=== PATIENT | male | born 1960 | race Caucasian/White ===

== ENCOUNTER 2021-12-13 10:44 | Day surgery (SDC) | payer OTHER ==
[~2021-12-13] VITALS: Ht 172 cm; Wt 115.3 kg
[2021-12-13] VITALS (7 sets, daily range): BP systolic 117–138; BP diastolic 78–98
[~2021-12-13 10:44] MED LIST: ADV1DS; ATN25T; FRSM20T; GNT.3OO351 OD; KCL10CCR; NAPR-243 PO; PHEN200T27 PO; SULF1TAB38 PO
--- NOTE | 2021-12-13 11:26 | ED Chest Pain ---
General Chief Complaint: Chest Pain Stated Complaint: CHEST PAINS Nursing Triage Note: PT TO RM 3 FROM [facility] WITH CC OF CHEST PAIN, STATES HE TOOK 1000 MG IBUPROFEN AND 3 ALEVE REMOTE MEDICAL CODER, PAIN STARTED ABOUT 0900, PT ATE 3 HAM AND CHEESE SANDWICHES BEFORE THAT THEN HIS HEART STARTED RACING, NOT THE FIRST TIME THIS HAS HAPPENED, ONCE ABOUT A WEEK AGO AFTER DOING YARD WORK, HAS NOT SEEN A DR FOR THIS BEFORE TODAY, FATHER AND BROTHER OF AMI'S. 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 States that he took 2000mg of Ibuprofen and 3 Aleve prior to arrival. Reports that his pain is a little better at this time. Did eat three cheese sandwiches prior to coming in also. Has never been seen for chest pain before. Reports that he had similar symptoms about a week ago after doing some yard work. Father and brother both of [place]. Timing/Duration: 1-3 hours Severity/Quality: moderate Location: substernal Radiation: no radiation Prior CP/Workup: no prior cardiac workup Modifying Factors: worse with exercise Associated Symptoms: No abdominal pain, No nausea/vomiting Allergies and Home Medications Allergies Coded Allergies: No Known Drug Allergies (Unverified , 04/30/06) Patient Home Medication List Home Medication List Reviewed: Yes Ibuprofen (Ibuprofen) 200 Mg Capsule, 200 MG PO PRN Prescribed by: PEDRO WADE on 12/13/21 [id number] Last Action: Reviewed Discontinued Medications Naproxen (Naprosyn) 500 Mg Tablet, 1 EACH PO BID Discontinued Reason: No Longer Taking Prescribed by: VELIA PAK on 03/23/09 1237 Last Action: Discontinued Phenazopyridine Hcl (Pyridium) 200 Mg Tablet, 1 EACH PO TID PRN Discontinued Reason: No Longer Taking Prescribed by: ALESHA VARGAS on 11/27/09 1301 Last Action: Discontinued Trimethoprim/Sulfamethoxazole (Bactrim Ds) 1 Ea Tablet, 1 EA PO BID Discontinued Reason: No Longer Taking Prescribed by: ALESHA VARGAS on 11/27/09 1301 Last Action: Discontinued Review of Systems Review of Systems Constitutional: No chills, No dizziness, No fever Respiratory: Denies Cough Cardiovascular: Chest Pain; Denies Edema, Denies Irregular Heart Rate, Denies Lightheadedness, Denies Palpitations, Denies Syncope Gastrointestinal: Denies Abdominal Pain, Denies Nausea, Denies Vomiting Genitourinary: Denies Burning, Denies Frequency Musculoskeletal: No back pain Skin: no symptoms reported All Other Systems Reviewed Negative Unless Noted: Yes Past Zbvevxc-Jygpyl-Ectjth Hx Patient Social History Tobacco Use?: No Substance use?: No Alcohol Use?: No Immunizations Up To Date Third COVID19 Vaccination Date: YES 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 oz. kg; 36.00 BMI Method:Stated General Appearance: No Apparent Distress Neck: Full Range of Motion, Normal Inspection, Non Tender, Supple Respiratory: Chest Non Tender, Lungs Clear, Normal Breath Sounds Cardiovascular: Regular Rate, Rhythm Gastrointestinal: Normal Bowel Sounds, No Organomegaly, No Pulsatile Mass, Non Tender, Soft Neurologic/Psychiatric: Alert, Oriented x3 Skin: Normal Color, Warm/Dry Progress/Results/Core Measures Results/Orders Lab Results Laboratory Tests Test 12/13/21 10:54 12/13/21 13:00 Range/Units White Blood Count 6.3 4.3-11.0 10^3/uL Red Blood Count 5.17 4.30-5.52 10^6/uL Hemoglobin 14.4 13.3-17.7 g/dL Hematocrit 45 40-54 % Mean Corpuscular Volume 87 80-99 fL Mean Corpuscular Hemoglobin 28 25-34 pg Mean Corpuscular Hemoglobin Concent 32 32-36 g/dL Red Cell Distribution Width 13.1 10.0-14.5 % Platelet Count 289 130-400 10^3/uL Mean Platelet Volume 8.8 L 9.0-12.2 fL Immature Granulocyte % (Auto) 1 % Neutrophils (%) (Auto) 69 42-75 % Lymphocytes (%) (Auto) 20 12-44 % Monocytes (%) (Auto) 9 0-12 % Eosinophils (%) (Auto) 1 0-10 % Basophils (%) (Auto) 1 0-10 % Neutrophils # (Auto) 4.4 1.8-7.8 10^3/uL Lymphocytes # (Auto) 1.2 1.0-4.0 10^3/uL Monocytes # (Auto) 0.5 0.0-1.0 10^3/uL Eosinophils # (Auto) 0.1 0.0-0.3 10^3/uL Basophils # (Auto) 0.1 0.0-0.1 10^3/uL Immature Granulocyte # (Auto) 0.1 0.0-0.1 10^3/uL Prothrombin Time 13.5 12.2-14.7 SEC INR Comment 1.0 0.8-1.4 Activated Partial Thromboplast Time 33 24-35 SEC D-Dimer 0.66 H 0.00-0.49 UG/ML Sodium Level 140 135-145 MMOL/L Potassium Level 4.4 3.6-5.0 MMOL/L Chloride Level 104 98-107 MMOL/L Carbon Dioxide Level 26 21-32 MMOL/L Anion Gap 10 5-14 MMOL/L Blood Urea Nitrogen 20 H 7-18 MG/DL Creatinine 1.33 H 0.60-1.30 MG/DL Estimat Glomerular Filtration Rate 60 BUN/Creatinine Ratio 15 Glucose Level 203 H 70-105 MG/DL Calcium Level 9.0 8.5-10.1 MG/DL Corrected Calcium 8.9 8.5-10.1 MG/DL Magnesium Level 2.1 1.6-2.4 MG/DL Total Bilirubin 0.4 0.1-1.0 MG/DL Aspartate Amino Transf (AST/SGOT) 21 5-34 U/L Alanine Aminotransferase (ALT/SGPT) 21 0-55 U/L Alkaline Phosphatase 85 40-136 U/L Myoglobin 264.2 H 10.0-92.0 NG/ML Troponin I 0.066 H 0.837 *H <0.028 NG/ML B-Type Natriuretic Peptide 25.5 <100.0 PG/ML Total Protein 7.6 6.4-8.2 GM/DL Albumin 4.1 3.2-4.5 GM/DL Lipase 29 8-78 U/L My Orders Orders - MILLI PAYNE E [employer] [place] Cbc With Automated Diff (12/13/21 11:30) Magnesium (12/13/21 11:30) Chest 1 View, Ap/Pa Only (12/13/21 11:30) Comprehensive Metabolic Panel (12/13/21 11:30) Myoglobin Serum (12/13/21 11:30) Protime With Inr (12/13/21 11:30) Partial Thromboplastin Time (12/13/21 11:30) O2 (12/13/21 11:30) Monitor-Rhythm Ecg Trace Only (12/13/21 11:30) Lipid Panel (12/14/21 06:00) Ed Iv/Invasive Line Start (12/13/21 11:30) Lipase (12/13/21 11:30) Bnp Ger (12/13/21 11:30) Fibrin Degradation Products (12/13/21 11:30) Troponin I Ger (12/13/21 11:30) Aspirin Chewable Tablet (Baby Aspirin Ch (12/13/21 11:30) Ct Angio Chest W (12/13/21 12:17) Ns Iv 1000 Ml (Sodium Chloride 0.9%) (12/13/21 12:30) Iohexol Injection (Omnipaque 350 Mg/Ml 1 (12/13/21 12:30) Received Contrast (Hold Metformin- Contr (12/13/21 12:30) Ns (Ivpb) (Sodium Chloride 0.9% Ivpb Bag (12/13/21 12:30) Sodium Chloride Flush (Catheter Flush Sy (12/13/21 12:30) Troponin I Ger (12/13/21 12:37) Nitroglycerin Ointment (Nitrobid Ointme (12/13/21 12:45) Enoxaparin Injection (Lovenox Injection) (12/13/21 13:45) Ns Iv 1000 Ml (Sodium Chloride 0.9%) (12/13/21 14:45) Medications Given in ED Current Medications Medications Dose Ordered Sig/William Route Start Time Stop Time Status Last Admin Dose Admin Aspirin 324 mg ONCE ONCE PO 12/13/21 11:30 12/13/21 11:32 DC 12/13/21 11:35 324 MG Iohexol 100 ml ONCE ONCE IV 12/13/21 12:30 12/13/21 12:32 DC 12/13/21 12:53 84 ML Nitroglycerin 1 inch ONCE ONCE TOP 12/13/21 12:45 12/13/21 12:46 DC 12/13/21 12:50 1 INCH Sodium Chloride 10 ml NEEDED PRN IV 12/13/21 12:30 12/13/21 12:53 10 ML Sodium Chloride 100 ml ONCE ONCE IV 12/13/21 12:30 12/13/21 12:32 DC 12/13/21 12:53 80 ML Vital Signs/I&O 12/13/21 10:48 Temp 36.5 Pulse 75 Resp 20 B/P (MAP) 164/103 (123) Pulse Ox 97 O2 Delivery Room Air Blood Pressure Mean: 123 Progress Progress Note : Progress Note patient with elevated troponin on labs. Spoke to cardiology and [facility] and patient will be admitted. Cardiology came to the department and took patient directly to the geophysical laboratory chief. Initial ECG Impression Date: Dec 13, 2021 Initial ECG Impression Time: 10:52 Initial ECG Rate: 89 Initial ECG Rhythm: A Fib/Flutter Initial ECG Impression: Atrial Fibrillation Departure Communication (Admissions) Time/Spoke to Admitting Phy: 13:24 Valery Time/Spoke to Consulting Phy: 12:53 Ceci Impression Primary Impression: NSTEMI (non-ST elevated myocardial infarction) Disposition: ADMITTED INPATIENT Condition: Stable Admissions Decision to Admit Reason: Admit from ER (General) Decision to Admit/Date: Dec 13, 2021 Time/Decision to Admit Time: 13:24 Departure-Patient Inst. Decision time for Depature: 13:24 Referrals: [facility]/K (PCP/Family) Primary Care Physician Scripts Ibuprofen (Ibuprofen) 200 Mg Capsule 200 MG PO PRN for 30 Days, CAP Prov: DAYAMI CHAHAL MD 12/13/21 MILLI PAYNE APRN Dec 13, 2021 11:26
[2021-12-13] MEDS ORDERED: ASPIRIN 81 MG CHEW (CHILDREN'S ASA) PO ONE (11:30)
[2021-12-13 11:38] LABS: BASOPHILS # (AUTO) 0.1 10^3/uL (0.0-0.1); BASOPHILS % (AUTO) 1 % (0-10); EOSINOPHILS # (AUTO) 0.1 10^3/uL (0.0-0.3); EOSINOPHILS % (AUTO) 1 % (0-10); HEMATOCRIT 45 % (40-54); HEMOGLOBIN 14.4 g/dL (13.3-17.7); LYMPHOCYTES # (AUTO) 1.2 10^3/uL (1.0-4.0); LYMPHOCYTES % (AUTO) 20 % (12-44); MEAN CORPUSCULAR HEMOGLOBIN 28 pg (25-34); MEAN CORPUSCULAR HGB CONC 32 g/dL (32-36); MEAN CORPUSCULAR VOLUME 87 fL (80-99); MEAN PLATELET VOLUME 8.8 fL (9.0-12.2); MONOCYTES # (AUTO) 0.5 10^3/uL (0.0-1.0); MONOCYTES % (AUTO) 9 % (0-12); NEUTROPHILS # (AUTO) 4.4 10^3/uL (1.8-7.8); NEUTROPHILS % (AUTO) 69 % (42-75); PLATELET COUNT 289 10^3/uL (130-400); WHITE BLOOD COUNT 6.3 10^3/uL (4.3-11.0)
[2021-12-13 11:44] LABS: PROTHROMBIN TIME PATIENT 13.5 SEC (12.2-14.7)
[2021-12-13 11:45] LABS: ALBUMIN 4.1 GM/DL (3.2-4.5); POTASSIUM 4.4 MMOL/L (3.6-5.0)
[2021-12-13 11:47] LABS: TOTAL PROTEIN 7.6 GM/DL (6.4-8.2)
[2021-12-13 11:49] LABS: BILIRUBIN,TOTAL 0.4 MG/DL (0.1-1.0)
[2021-12-13 11:51] LABS: CREATININE SERUM 1.33 MG/DL (0.60-1.30)
[2021-12-13 11:54] LABS: MAGNESIUM 2.1 MG/DL (1.6-2.4)
--- NOTE | 2021-12-13 12:05 | Diagnostic Imaging Report ---
CLINICAL INDICATION: Patient with chest pain. EXAM: Portable chest x-ray upright view. COMPARISON: None. FINDINGS: Lungs/pleura: Lungs are clear. There is no pneumothorax. There is no pleural effusion. Mediastinum: Unremarkable. Pulmonary vasculature: Unremarkable. Heart: Cardiac silhouette is upper limits of normal for portable projection. Bones/extrathoracic soft tissue: There are hypertrophic spurs involving the thoracic spine. IMPRESSION: There is no radiographic evidence of acute cardiopulmonary process. Dictated by: Dictated on workstation # [id number]
[2021-12-13] MEDS ORDERED: HOLD METFORMIN - RECEIVED CONTRAST 20 ML VIAL IV SCH (12:30)
[2021-12-13] MEDS ORDERED: NS IV 1000 ML 1,000 ML IV SCH ×2 (12:30→14:45)
[2021-12-13] MEDS ORDERED: NS 100 ML (IVPB) BAG IV ONE (12:30)
[2021-12-13] MEDS ORDERED: IOHEXOL 350 MG/ML 100 ML (OMNIPAQUE 350) VIAL IV ONE (12:30)
[2021-12-13] MEDS ORDERED: CATHETER FLUSH 10 ML SYR IV PRN (12:30)
[2021-12-13] MEDS ORDERED: NITROGLYCERIN 2% OINT 1 GM UNIT DOSE PACKET TOP ONE (12:45)
--- NOTE | 2021-12-13 13:06 | Diagnostic Imaging Report ---
PROCEDURE: CT angiography of the chest with contrast. TECHNIQUE: Multiple contiguous axial images were obtained through the chest after uneventful bolus administration of intravenous contrast. 3D reconstructed CTA MIP acquisitions were also performed. Auto Exposure Controls were utilized during the CT exam to meet ALARA standards for radiation dose reduction. INDICATION: Chest pain and elevated d-dimer. FINDINGS: There is good opacification of pulmonary arteries without intraluminal filling defect. Thoracic aorta is of normal caliber. There is extensive atherosclerotic calcification within coronary arteries. Focal groundglass density in the right upper lobe may represent minimal edema or pneumonitis. There is no consolidation or suspicious mass lesion. No significant pleural or pericardial fluid is identified and there is no evidence of pathologically enlarged adenopathy. IMPRESSION: No CTA evidence of pulmonary embolism or other great vessel abnormality in the thorax. There is coronary artery disease and minimal right upper lobe edema or pneumonitis. Dictated by: Dictated on workstation # [id number]
[2021-12-13] MEDS ORDERED: ENOXAPARIN 60 MG/0.6 ML (LOVENOX) SYR SC SCH (13:45)
[2021-12-13] MEDS ORDERED: NS IV 1000 ML 1,000 ML ONE (14:30)
[2021-12-13] MEDS ORDERED: LIDOCAINE 1% INJ 30 ML (XYLOCAINE) VIAL ONE (14:30)
[2021-12-13] MEDS ORDERED: HEParin (CATH LAB) 2,000 ML IV ONE (14:31)
[2021-12-13] MEDS ORDERED: fentaNYL INJ 100 MCG/2 ML AMP ONE ×2 (14:37→16:11)
[2021-12-13] MEDS ORDERED: VERAPAMIL 5 MG/2 ML (CALAN) VIAL IV ONE (14:37)
--- NOTE | 2021-12-13 14:37 | Consultation-Cardiology ---
HPI-Cardiology Cardiology Consultation Date of Consultation 12/13/21 Date of Admission Time Seen by Provider: 14:35 Indication: Chest pain HPI 61-year-old gentleman with history of hypertension, hyperlipidemia, has been having chest pain on and off for the past week. Became worse today. Came into the emergency room and he was having active pain. EKG did not show any acute changes, had a strong family history of heart disease. Noted to have elevation in troponin level. Home Medications & Allergies Allergies: Coded Allergies: No Known Drug Allergies (Unverified , 04/30/06) Home Medication List Reviewed: Yes KUV-Ztjkul-Tczqal Hx Patient Social History Marital Status: Employed/Student: employed Have you traveled recently?: No Alcohol Use?: No Past Medical History Discussed below Family Medical History Significant Family History: CAD Under 55 Years Old, CAD Over 55 Years Old Review of Systems-General Review of Systems Constitutional: no symptoms reported, see HPI EENTM: see HPI, no symptoms reported Respiratory: no symptoms reported, see HPI, dyspnea on exertion Cardiovascular: see HPI, chest pain; No edema, No Hx of Intervention, No palpitations, No syncope, No vascular heart diseas, No other Gastrointestinal: no symptoms reported, see HPI Genitourinary: no symptoms reported, see HPI Musculoskeletal: no symptoms reported, see HPI Skin: no symptoms reported, see HPI Psychiatric/Neurological: No Symptoms Reported, See HPI Reviewed Test Results Reviewed Test Results Lab Laboratory Tests Test 12/13/21 10:54 12/13/21 13:00 Range/Units White Blood Count 6.3 4.3-11.0 10^3/uL Red Blood Count 5.17 4.30-5.52 10^6/uL Hemoglobin 14.4 13.3-17.7 g/dL Hematocrit 45 40-54 % Mean Corpuscular Volume 87 80-99 fL Mean Corpuscular Hemoglobin 28 25-34 pg Mean Corpuscular Hemoglobin Concent 32 32-36 g/dL Red Cell Distribution Width 13.1 10.0-14.5 % Platelet Count 289 130-400 10^3/uL Mean Platelet Volume 8.8 L 9.0-12.2 fL Immature Granulocyte % (Auto) 1 % Neutrophils (%) (Auto) 69 42-75 % Lymphocytes (%) (Auto) 20 12-44 % Monocytes (%) (Auto) 9 0-12 % Eosinophils (%) (Auto) 1 0-10 % Basophils (%) (Auto) 1 0-10 % Neutrophils # (Auto) 4.4 1.8-7.8 10^3/uL Lymphocytes # (Auto) 1.2 1.0-4.0 10^3/uL Monocytes # (Auto) 0.5 0.0-1.0 10^3/uL Eosinophils # (Auto) 0.1 0.0-0.3 10^3/uL Basophils # (Auto) 0.1 0.0-0.1 10^3/uL Immature Granulocyte # (Auto) 0.1 0.0-0.1 10^3/uL Prothrombin Time 13.5 12.2-14.7 SEC INR Comment 1.0 0.8-1.4 Activated Partial Thromboplast Time 33 24-35 SEC D-Dimer 0.66 H 0.00-0.49 UG/ML Sodium Level 140 135-145 MMOL/L Potassium Level 4.4 3.6-5.0 MMOL/L Chloride Level 104 98-107 MMOL/L Carbon Dioxide Level 26 21-32 MMOL/L Anion Gap 10 5-14 MMOL/L Blood Urea Nitrogen 20 H 7-18 MG/DL Creatinine 1.33 H 0.60-1.30 MG/DL Estimat Glomerular Filtration Rate 60 BUN/Creatinine Ratio 15 Glucose Level 203 H 70-105 MG/DL Calcium Level 9.0 8.5-10.1 MG/DL Corrected Calcium 8.9 8.5-10.1 MG/DL Magnesium Level 2.1 1.6-2.4 MG/DL Total Bilirubin 0.4 0.1-1.0 MG/DL Aspartate Amino Transf (AST/SGOT) 21 5-34 U/L Alanine Aminotransferase (ALT/SGPT) 21 0-55 U/L Alkaline Phosphatase 85 40-136 U/L Myoglobin 264.2 H 10.0-92.0 NG/ML Troponin I 0.066 H 0.837 *H <0.028 NG/ML B-Type Natriuretic Peptide 25.5 <100.0 PG/ML Total Protein 7.6 6.4-8.2 GM/DL Albumin 4.1 3.2-4.5 GM/DL Lipase 29 8-78 U/L Physical Exam Physical Exam Vital Signs Vital Signs - First Documented 12/13/21 10:48 Temp 36.5 Pulse 75 Resp 20 B/P (MAP) 164/103 (123) Pulse Ox 97 O2 Delivery Room Air Capillary Refill : Height, Weight, BMI Height: '" Weight: lbs. oz. kg; 36.00 BMI Method:Stated General Appearance: No Apparent Distress, WD/WN Eyes: Bilateral Eye Normal Inspection, Bilateral Eye PERRL, Bilateral Eye EOMI HEENT: PERRL/EOMI, TMs Normal, Normal ENT Inspection, Pharynx Normal, Moist Mucous Membranes Neck: Full Range of Motion, Normal Inspection, Non Tender, Supple, Carotid Bruit Respiratory: Chest Non Tender, Normal Breath Sounds, No Accessory Muscle Use, No Respiratory Distress Cardiovascular: Regular Rate, Rhythm, No Edema, No Gallop, No JVD, No Murmur, Normal Peripheral Pulses Gastrointestinal: Normal Bowel Sounds, No Organomegaly, No Pulsatile Mass, Non Tender, Soft Back: Normal Inspection, No CVA Tenderness, No Vertebral Tenderness Extremity: Normal Capillary Refill, Normal Inspection, Normal Range of Motion, Non Tender, No Calf Tenderness, No Pedal Edema Neurologic/Psychiatric: Alert, Oriented x3, No Motor/Sensory Deficits, Normal Mood/Affect Skin: Normal Color, Warm/Dry Lymphatic: No Adenopathy A/P-Cardiology Admission Diagnosis Chest pain Non-ST elevation myocardial infarction Hypertension Hyperlipidemia Assessment/Plan Chest pain, unstable angina, non-ST elevation myocardial infarction, elevation in troponin level Plan to proceed with cardiac catheterization possible PTCA Coronary artery disease, had a cardiac catheterization 2007 showing mild to moderate coronary artery. Planning to proceed with cardiac catheter Hypertension, restart home medication monitor blood pressure Hyperlipidemia, monitor lipids Strong family history of heart disease. Clinical Quality Measures AMI/AHF: ASA po Prior to arrival: DAYAMI Neal MD Dec 13, 2021 14:37
[2021-12-13] MEDS ORDERED: HEParin 1000 UNIT/ML (10ML VIAL) FOR BOLUS ONE (14:38)
[2021-12-13] MEDS ORDERED: MIDAZOLAM 2 MG/2 ML (VERSED) VIAL ONE ×2 (14:38→16:11)
[2021-12-13] MEDS ORDERED: NITRO DRIP 25000 MCG/D5W 0 ML IV ONE (14:38)
--- NOTE | 2021-12-13 14:38 | Cardiac Procedure Note-CS/ASA ---
Pre-Procedure Note Pre-Op Procedure Note Date of Available H&P: Dec 13, 2021 Date H&P Reviewed: Dec 13, 2021 Time H&P Reviewed: 14:37 History & Physical: H&P Reviewed, Patient Examed, No changes noted Pre-Operative Diagnosis: NSTMI Conscious Sedation Pre-Proced Time 14:38 ASA Score 3 For ASA 3 and 4: Consider anesthesia and medical clearance. Also, for patients with a history of failed moderate sedation consider anesthesia. Airway Lungs Heart ASA score ASA 1: a normal healthy patient ASA 2: a patient with a mild systemic disease (mid diabetes, controlled hypertension, obesity ASA 3: a patient with a severe systemic disease that limits activity (angina, COPD, prior Myocardial infarction) ASA 4: a patient with an incapacitating disease that is a constant threat to life (CHF, renal failure) ASA 5: a moribund patient not expected to survive 24 hrs. (ruptured aneurysm) ASA 6: a declared brain- patient whose organs are being harvested. For emergent operations, add the letter E after the classification Mallampati Classification Grade 3 Sedation Plan Analgesia, Amnesia, Plan communicated to team members, Discussed options with patient/fam, Discussed risks with patient/fam The patient is an appropriate candidate to undergo the planned procedure, sedation, and anesthesia. The patient immediately re-assessed prior to indication. DAYAMI CHAHAL MD Dec 13, 2021 14:38
--- NOTE | 2021-12-13 15:01 | History & Physical-Hospitalist ---
JOCELYN SEGOVIA 12/13/21 1501: History of Present Illness HPI/Chief Complaint Patient is a 61 yo man presenting with left-sided chest pain. He describes it as a constant ache that radiates to his left shoulder and down his arm. Notes that the pain has been intermittent for the last week or so but is much worse today, prompting him to seek care at the ER. The patient states that he had been doing some yard work a few days ago and at first thought that the discomfort in his chest and shoulder were the result of overwork. He notes similar occurrences in the past in which he had to have a cardiac cath but notes that last time, his symptoms were accompanied by more shortness of breath. He indicates SOB with exertion, intermittent swelling of his ankles, He denies nausea, vomiting, dizziness, lightheadedness, headaches, or syncope. He does not regularly see a doctor, takes no medications, and has a previous medical history of kidney cancer when he was 24 for which he received chemotherapy. Family history of myocardial infarction in his father ( at 52 from [place]) and brother (Had 6 previous bypass procedures before dying in his sleep). He does not smoke, drink alcohol, or use illicit drugs. Notes that he has seasonal allergies and experienced what he believes to be a cold a few weeks ago. believes that he has undiagnosed diabetes due to shakiness and agitation if he goes too long without eating. Source: patient, family, RN/MD, RN notes reviewed Exam Limitations: no limitations Date Seen 12/13/21 Time Seen by a Provider: 14:00 Attending Physician [facility] PCP Admitting Physician: Shira Arroyo DO Attending Physician: Shira Arroyo DO Referring Physician Date of Admission 12/13/2021 Home Medications & Allergies Home Medications Reviewed patient Home Medication Reconciliation performed by pharmacy medication reconciliations model technician and/or nursing. Patients Allergies have been reviewed. Allergies Allergies Coded Allergies No Known Drug Allergies (Unverified04/30/06) Past Tentrqn-Hkhiuz-Jcrmeq Hx Patient Social History Marrital Status: Employed/Student: employed Tobacco Use?: No Substance use?: No Alcohol Use?: No Seasonal Allergies Seasonal Allergies: Yes Current Status Primary Language: Frisian Preferred Spoken Language: Frisian Sensory deficits: Hearing impairment Implanted or Applied Medical D: None Past Medical History Hearing Impairment: Hard of Hearing Kidney Did You Recieve Any Treatments: Yes What Type of Treatment Did You: Chemotherapy, Surgical Intervention Patient states that he had kidney cancer when he was 24. Family Medical History Heart Disease, CAD Under 55 Years Old, CAD Over 55 Years Old Review of Systems Constitutional: see HPI; No chills, No dizziness, No fever EENTM: no symptoms reported Respiratory: see HPI, dyspnea on exertion Cardiovascular: see HPI, chest pain, edema (Minor swelling in legs); No syncope Gastrointestinal: no symptoms reported, see HPI; No abdominal pain, No nausea, No vomiting Genitourinary: no symptoms reported Musculoskeletal: no symptoms reported, see HPI Skin: no symptoms reported Psychiatric/Neurological: No Symptoms Reported Physical Exam Physical Exam Vital Signs Vital Signs - First Documented 12/13/21 10:48 Temp 36.5 Pulse 75 Resp 20 B/P (MAP) 164/103 (123) Pulse Ox 97 O2 Delivery Room Air Capillary Refill : Height, Weight, BMI Height: 172 cm Weight: 109 kg; 36.00 BMI Method:Stated General Appearance: No Apparent Distress, WD/WN, Obese HEENT: PERRL/EOMI Neck: Full Range of Motion, Normal Inspection, Non Tender, Supple; No JVD Respiratory: Chest Non Tender, Lungs Clear, Normal Breath Sounds, No Accessory Muscle Use, No Respiratory Distress Cardiovascular: Regular Rate, Rhythm, No Gallop, No JVD, No Murmur, Normal Peripheral Pulses Gastrointestinal: Normal Bowel Sounds, No Organomegaly, No Pulsatile Mass, Non Tender, Soft Rectal: Deferred Back: Normal Inspection, No Vertebral Tenderness Extremity: Normal Inspection, Normal Range of Motion, Non Tender, No Calf Tenderness, Swelling (Trace swelling in ankles bilaterally) Neurologic/Psychiatric: Alert, Oriented x3, No Motor/Sensory Deficits, Normal Mood/Affect Skin: Normal Color, Warm/Dry Results Results/Procedures Labs Laboratory Tests 12/13/21 10:54 Patient resulted labs reviewed. Imaging Date of Exam:12/13/21 CT ANGIO CHEST W PROCEDURE: CT angiography of the chest with contrast. TECHNIQUE: Multiple contiguous axial images were obtained through the chest after uneventful bolus administration of intravenous contrast. 3D reconstructed CTA MIP acquisitions were also performed. Auto Exposure Controls were utilized during the CT exam to meet ALARA standards for radiation dose reduction. INDICATION: Chest pain and elevated d-dimer. FINDINGS: There is good opacification of pulmonary arteries without intraluminal filling defect. Thoracic aorta is of normal caliber. There is extensive atherosclerotic calcification within coronary arteries. Focal groundglass density in the right upper lobe may represent minimal edema or pneumonitis. There is no consolidation or suspicious mass lesion. No significant pleural or pericardial fluid is identified and there is no evidence of pathologically enlarged adenopathy. IMPRESSION: No CTA evidence of pulmonary embolism or other great vessel abnormality in the thorax. There is coronary artery disease and minimal right upper lobe edema or pneumonitis. Dictated on workstation # [id number] Dict: 12/13/21 1301 Trans: 12/13/21 1306 [id number] Interpreted by: ADONIS LINDSEY MD Date of Exam:12/13/21 CHEST 1 VIEW, AP/PA ONLY CLINICAL INDICATION: Patient with chest pain. EXAM: Portable chest x-ray upright view. COMPARISON: None. FINDINGS: Lungs/pleura: Lungs are clear. There is no pneumothorax. There is no pleural effusion. Mediastinum: Unremarkable. Pulmonary vasculature: Unremarkable. Heart: Cardiac silhouette is upper limits of normal for portable projection. Bones/extrathoracic soft tissue: There are hypertrophic spurs involving the thoracic spine. IMPRESSION: There is no radiographic evidence of acute cardiopulmonary process. Dictated on workstation # [id number] Dict: 12/13/21 1202 Trans: 12/13/21 1205 [id number] Interpreted by: SVETLANA WING MD Both imaging reports are currently in draft stage Meds As stated in meds list. Enoxaparin for DVT prophylaxis. NaCl 1,000 @ 100 mls/hr. Nitroglycerin, aspirin administered in ER. Orders placed for heparin, midazolam, fentanyl citrate, verapamil, lidocaine placed Procedures Patient to undergo cardiac catheterization Assessment/Plan Admission Diagnosis Chest pain (NSTEMI) Admission Status: Inpatient Order (span 2 midnights) Reason for Inpatient Admission: Patient to be admitted for cardiac catheterization and medication management. Due to concerning symptoms for acute cardiac disease, inpatient care is advised. Assessment and Plan Chest pain, elevated troponin (NSTEMI) - patient to undergo cardiac catheterization. Hypertension - begin treatment with anti-hypertensive. Lisinopril is not contraindicated. Continue close monitoring of BP measurements. CAD - Patient had a cardiac catheterization in 2007 showing mild to moderate coronary artery. Hyperlipidemia - Monitor lipid levels Elevated D-dimer - enoxaparin initiated for DVT prophylaxis Family history of heart disease Hyperglycemia - further work-up for possible Type II Diabetes Mellitus needed Clinical Quality Measures AMI/AHF: ASA po Prior to arrival: No DVT/VTE Risk/Contraindication: VTE Addressed: Yes VTE Present on Admission: No SHIRA ARROYO 12/14/21 0513: History of Present Illness HPI/Chief Complaint Chief complaint: Chest pain with NSTEMI HPI: This is a 61-year-old male with a past medical history of hypertension who presents with chest pain. Elevated troponin noted. He underwent cardiac catheterization and showed no evidence of any need for intervention. Source: patient, family Exam Limitations: no limitations Past Hjpcked-Rvlkue-Kbjavk Hx Patient Social History Marrital Status: Employed/Student: retired Smoking Status: Former Smoker Past Medical History High Cholesterol, Hypertension Review of Systems Constitutional: see HPI Cardiovascular: chest pain Physical Exam Physical Exam General Appearance: No Apparent Distress, Chronically ill, Obese Eyes: Right Eye Normal Inspection, Right Eye PERRL HEENT: PERRL/EOMI, Normal ENT Inspection, Pharynx Normal, Moist Mucous Membranes Neck: Full Range of Motion, Normal Inspection, Non Tender Respiratory: Chest Non Tender, Lungs Clear, Normal Breath Sounds, No Accessory Muscle Use, No Respiratory Distress Cardiovascular: Regular Rate, Rhythm, No Edema, No Gallop, No JVD, No Murmur, Normal Peripheral Pulses Gastrointestinal: Normal Bowel Sounds, No Organomegaly, No Pulsatile Mass, Non Tender, Soft Back: Normal Inspection, No CVA Tenderness, No Vertebral Tenderness Extremity: Normal Capillary Refill, Normal Inspection, Normal Range of Motion, Non Tender, No Calf Tenderness, No Pedal Edema Neurologic/Psychiatric: Alert, Oriented x3, No Motor/Sensory Deficits, Normal Mood/Affect Skin: Normal Color, Warm/Dry Lymphatic: No Adenopathy Assessment/Plan Admission Diagnosis Chest pain NSTEMI Obesity Hypertension Plan: Cardiac cath Admission Status: Observation Supervisory-Addendum Brief Verification & Attestation Participated in pt care: history, MDM, physical Personally performed: exam, history, MDM, supervision of care Care discussed with: Medical Student Procedures: n/a Results interpretation: Verified all documentation Verification and Attestation of Medical Student E/M Service A medical student performed and documented this service in my presence. I reviewed and verified all information documented by the medical student and made modifications to such information, when appropriate. I personally performed the physical exam and medical decision making. Shira S Arroyo, Dec 14, 2021,05:12 JOCELYN SEGOVIA Dec 13, 2021 15:01 SHIRA ARROYO DO Dec 14, 2021 05:13
[2021-12-13] MEDS ORDERED: PATIENT MAY USE OWN MEDS, ALL PO SCH ×2 (16:30→17:00)
--- NOTE | 2021-12-13 16:35 | Cardiac Cath Report ---
Cardiac Cath Report Physician (s)/Molecular Spectroscopist (s) Physician DAYAMI CHAHAL MD Pre-Procedure Diagnosis Pre-Procedure Diagnosis: NSTMI Post-Procedure Note Procedure Start Date: Dec 13, 2021 Name of Procedure: Left heart catheterization IFR to the right coronary artery IFR to the LAD IFR to the circumflex Findings/Procedure Note PROCEDURE NOTE: Patient was admitted with acute non-ST elevation myocardial infarction. After explaining the procedure to the patient, all pros and cons were explained, all questions were answered. The patient signed the consent and then he was placed on the cardiac catheterization laboratory. Groin was prepped SL fashion local anesthesia was used. Sheath placed in the right femoral artery. Ronna right and left catheter were used to access the coronary system. Ronna right was prolapsed to the left ventricular cavity, pressure was measured, pullback LV to aorta was done. Patient was noted to have diffuse ectasia with multiple lesions in all his coronaries. Ronna right guide was advanced then IFR wire was advanced through the right coronary artery and the measurement was 0.97. I used multiple different guides then I was able to intubate the left main with EBU 3.5 guide. IFR wire was advanced to the LAD and the value was 0.97. Then retracted and advanced into the circumflex artery and IFR was 0.98 through the circumflex system. At the end of the procedure the sheath was removed. Closure device was deployed FINDINGS: Hemodynamics LV 118/22, end-diastolic pressure of 22 Aorta 120/84 mean of 83 ANATOMY: Left Main is free of obstructive disease Left Anterior Descending has significant ectasia with aneurysm in the mid LAD, IFR through the LAD was 0.97. The first diagonal artery has mid subtotal occlusion in its moderate to small in size. Fairly distal artery. Medical therapy is recommended Left Circumflex has diffuse ectasia with ostial stenosis, IFR through the circumflex artery was 0.98 Right Coronary Artery has diffuse ectasia with a lesion in the proximal and mid right coronary artery and IFR through the right coronary artery was 0.97 LV Gram was not done, pressure was measured CONCLUSION: 1. 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 Multiple moderate lesions nonobstructive disease in the coronary system with IFR through the LAD and right coronary artery and the circumflex artery around 0.97. 2. Subtotal occlusion at the mid to distal first diagonal artery which is small to moderate in size. Medical therapy is recommended 3. Mildly elevated left ventricular end-diastolic pressure DISCUSSION AND RECOMMENDATION: Maximizing medical therapy is recommended no intervention is warranted Anesthesia Type: Conscious Sedation Estimated blood loss (mL): 35 ml Contrast Amount: 105 ml Total Radiation Dose: 1411 mGy Post-Procedure Diagnosis Post-operative diagnosis: Non-ST elevation myocardial infarction Coronary artery disease Hypertension Hyperlipidemia DAYAMI CHAHAL MD Dec 13, 2021 16:35
[2021-12-13] MEDS ORDERED: NITROGLYCERIN 0.4 MG SL TABS BTL 25'S SL PRN ×2 (16:45→17:00)
[2021-12-13] MEDS ORDERED: MILK OF MAGNESIA 400 MG/5 ML 30 ML UDC PO PRN (17:00)
[2021-12-13] MEDS ORDERED: ANTACID SUSP 30 ML UDC (MYLANTA) PO PRN (17:00)
[2021-12-13] MEDS ORDERED: diphenhydrAMINE 25 MG TAB (BENADRYL) PO PRN (17:00)
[2021-12-13] MEDS ORDERED: MELATONIN 3 MG TABLET PO PRN (17:00)
[2021-12-13] MEDS ORDERED: diphenhydrAMINE 50 MG/ML INJ (BENADRYL) IVP PRN (17:00)
[2021-12-13] MEDS ORDERED: LORazepam 0.5 MG (ATIVAN) TABLET PO PRN (17:00)
[2021-12-13] MEDS ORDERED: BISACODYL 10 MG SUPP (DULCOLAX) PR PRN (17:00)
[2021-12-13] MEDS ORDERED: morphine IMMEDIATE RELEASE 15 MG TABLET PO PRN (17:00)
[2021-12-13] MEDS ORDERED: morphine INJ 4 MG/ML 1 ML (VIAL/SYRINGE) IV PRN (17:00)
[2021-12-13] MEDS ORDERED: ONDANSETRON 4 MG/2 ML (SDV) Z0FRAN IV PRN (17:00)
[2021-12-13] MEDS ORDERED: polyethylene glycoL POWDER 17 GM (MIRALAX) PACK PO PRN (17:00)
[2021-12-13] MEDS ORDERED: ONDANSETRON 4 MG (ZOFRAN) ORAL DISSOLVE TAB PO PRN (17:00)
[2021-12-13] MEDS ORDERED: CALCIUM CARBONATE 500 MG (TUMS) TAB.CHEW PO PRN (17:00)
[2021-12-13] MEDS ORDERED: LACTULOSE SYRUP 10GM/15ML (ENULOSE) 30ML UDC PO PRN (17:00)
[2021-12-13] MEDS ORDERED: cloNIDine 0.1 MG (CATAPRES) TAB PO PRN (17:00)
[2021-12-13] MEDS ORDERED: ENOXAPARIN 100 MG/1 ML (LOVENOX) SYR SC SCH (17:00)
[2021-12-13] MEDS ORDERED: ISOSORBIDE MONONITRATE 30 MG (IMDUR) TAB PO NR (17:45)
[2021-12-13] MEDS ORDERED: CLOPIDOGREL 300 MG (PLAVIX) TABLET PO NR (17:45)
[2021-12-13] MEDS: NS IV 1000 ML 1,000 ML IV SCH ×2 (17:54→21:12)
[2021-12-13] MEDS ORDERED: FLU QUADRIvalent (6 months+) 60 mcg/0.5 ml 2022-23 (Fluzone) IM ONE (18:00)
[2021-12-13] MEDS ORDERED: IBUP-2185 PO (18:53)
[2021-12-13] MEDS: meTOprolol TARTRATE 25 MG (LOPRESSOR) TABLET PO SCH (21:06)
[2021-12-13] MEDS: inSUlin ASPART (NovoLOG) 1 UNIT/0.01 ML (CHARGE PER UNIT) SC SCH (21:11)
[2021-12-13] MEDS: DOCUSATE SODIUM 100 MG (COLACE) CAP PO SCH (21:11)
[2021-12-13] MEDS: SENNOSIDES 8.6 MG (SENOKOT) TAB PO SCH (21:11)
[2021-12-14] VITALS: BP 116/72
[2021-12-14] MEDS: ACETAMINOPHEN 325 MG TABLET PO PRN (00:59)
[2021-12-14 04:00] VITALS: BP 106/67
[2021-12-14] MEDS: ENOXAPARIN 120 MG/0.8 ML (LOVENOX) SQ SCH ×2 (04:36→17:07)
[2021-12-14 06:16] LABS: BASOPHILS # (AUTO) 0.1 10^3/uL (0.0-0.1); BASOPHILS % (AUTO) 1 % (0-10); EOSINOPHILS # (AUTO) 0.1 10^3/uL (0.0-0.3); EOSINOPHILS % (AUTO) 1 % (0-10); HEMATOCRIT 38 % (40-54); HEMOGLOBIN 11.9 g/dL (13.3-17.7); LYMPHOCYTES # (AUTO) 1.3 10^3/uL (1.0-4.0); LYMPHOCYTES % (AUTO) 18 % (12-44); MEAN CORPUSCULAR HEMOGLOBIN 28 pg (25-34); MEAN CORPUSCULAR HGB CONC 31 g/dL (32-36); MEAN CORPUSCULAR VOLUME 89 fL (80-99); MEAN PLATELET VOLUME 8.8 fL (9.0-12.2); MONOCYTES # (AUTO) 0.6 10^3/uL (0.0-1.0); MONOCYTES % (AUTO) 9 % (0-12); NEUTROPHILS % (AUTO) 70 % (42-75); PLATELET COUNT 239 10^3/uL (130-400); WHITE BLOOD COUNT 7.2 10^3/uL (4.3-11.0)
[2021-12-14 06:29] LABS: ALBUMIN 3.2 GM/DL (3.2-4.5); POTASSIUM 4.5 MMOL/L (3.6-5.0)
[2021-12-14 06:30] LABS: CALCIUM 8.2 MG/DL (8.5-10.1)
[2021-12-14 06:34] LABS: BILIRUBIN,TOTAL 0.5 MG/DL (0.1-1.0)
[2021-12-14 06:35] LABS: CREATININE SERUM 1.03 MG/DL (0.60-1.30)
[2021-12-14] MEDS: inSUlin ASPART (NovoLOG) 1 UNIT/0.01 ML (CHARGE PER UNIT) SC SCH ×4 (06:38→21:19)
[2021-12-14 07:52] VITALS: BP 105/66
[2021-12-14] MEDS: DOCUSATE SODIUM 100 MG (COLACE) CAP PO SCH ×2 (09:21→21:19)
--- NOTE | 2021-12-14 09:22 | Cardiology Progress Note ---
Subjective Date Seen by Provider: Dec 14, 2021 Time Seen by Provider: 09:20 Subjective/Events-last exam Patient was seen at bedside, laying down comfortably, feeling better. Denied any chest pain. Review of Systems General: No Chills, No Night Sweats, No Fatigue, No Malaise, No Appetite, No Other HEENT: No Head Aches, No Visual Changes, No Eye Pain, No Ear Pain, No Dysphasia, No Sinus Congestion, No Post Nasal Drip, No Sore Throat, No Other Pulmonary: No Dyspnea, No Cough, No Pleuritic Chest Pain, No Other Cardiovascular: No: Chest Pain, Palpitations, Orthopnea, Paroxysmal Noc. Dyspnea, Edema, Lt Headedness, Other Objective-Cardiology Exam Last Set of Vital Signs Vital Signs 12/14/21 12/14/21 07:52 08:00 Temp 36.8 Pulse 84 Resp 20 B/P (MAP) 105/66 (79) Pulse Ox 96 O2 Delivery Room Air I&O Intake and Output 12/14/21 00:00 Intake Total 1200 ml Output Total 425 ml Balance 775 ml Intake Oral 200 ml IV Total 1000 ml Output Urine Total 425 ml Daily Weight Change No General: Alert, Oriented X3, Cooperative HEENT: Atraumatic, PERRLA Neck: Supple, No JVD, No Thyromegaly Lungs: Clear to Auscultation, Normal Air Movement Heart: Regular Rate, Normal S1, Normal S2, Other (Systolic murmur at the left sternal border) Abdomen: Normal Bowel Sounds, Soft, No Tenderness, No Hepatosplenomegaly, No Masses Extremities: No Clubbing, No Cyanosis, No Edema, Normal Pulses, No Tenderness/Swelling Skin: No Rashes, No Breakdown, No Significant Lesion Neuro: Normal Gait, Normal Speech, Strength at 5/5 X4 Ext, Normal Tone, Sensation Intact Psych/Mental Status: Mental Status NL, Mood NL Results Lab Laboratory Tests 12/13/21 10:54 12/14/21 05:25 A/P-Cardiology Admission Diagnosis FINAL DIAGNOSIS chest pain Non-ST elevation myocardial infarction Hypertension Hyperlipidemia Assessment/Plan HOSPITAL COURSE Chest pain, unstable angina, non-ST elevation myocardial infarction, elevation in troponin level Cardiac catheterization was done on December 13, 2021. Diffuse coronary ectasia was noted. Subtotal occlusion in the mid first diagonal artery that is smaller artery not amendable to intervention. Medical therapy is recommended. Patient was started on aspirin and Plavix. Planning for discharge today and follow-up as an outpatient Coronary artery disease, had a cardiac catheterization 2007 showing mild to moderate coronary artery. Cardiac catheterization carried out on December 13, 2021, diffuse coronary ectasia with multiple lesions about 50 to 60%. iFR was done in all 3 arteries, RCA 0.97, left circumflex artery 0.97 and LAD 0.98. Does not require any intervention or stenting. Subtotal occlusion in the mid diagonal artery, small to moderate in size, not amendable to intervention. Medical therapy is recommended Hypertension, better controlled, monitor blood pressure Hyperlipidemia, monitor lipids Strong family history of heart disease. Patient was educated on compliance with medications. Arrange for follow-up in 1 to 2 weeks DAYAMI CHAHAL MD Dec 14, 2021 09:22
[2021-12-14] MEDS: SENNOSIDES 8.6 MG (SENOKOT) TAB PO SCH ×2 (09:23→21:19)
[2021-12-14] MEDS: CLOPIDOGREL 75 MG (PLAVIX) TABLET PO SCH (09:24)
[2021-12-14] MEDS: ASPIRIN E.C. 81 MG (ECOTRIN) TAB PO SCH (09:24)
[2021-12-14] MEDS: LOSARTAN 25 MG (COZAAR) TAB PO SCH (09:24)
[2021-12-14] MEDS: meTOprolol TARTRATE 25 MG (LOPRESSOR) TABLET PO SCH ×2 (09:24→21:19)
[2021-12-14] MEDS: ISOSORBIDE MONONITRATE 30 MG (IMDUR) TAB PO SCH (09:24)
[2021-12-14] MEDS: PANTOPRAZOLE 40 MG (PROTONIX) TAB PO SCH (09:25)
[2021-12-14] MEDS ORDERED: ATOR80TA76 PO (09:25)
[2021-12-14] MEDS ORDERED: ASPI-1238 PO (09:25)
[2021-12-14] MEDS ORDERED: PANT40SU PO (09:25)
[2021-12-14] MEDS ORDERED: NITR0.4T42 SL (09:25)
[2021-12-14] MEDS ORDERED: LOSA25TA41 PO (09:25)
[2021-12-14] MEDS ORDERED: ISOS30TA82 PO (09:25)
[2021-12-14] MEDS ORDERED: CLOP75TA28 PO (09:25)
[2021-12-14] MEDS ORDERED: METO-333 PO (09:25)
--- NOTE | 2021-12-14 09:26 | Discharge Inst-Post CATH ---
Discharge Inst-CATH/EP Problems Reviewed?: Yes Post Cardiac Cath/EP D/C Inst Follow Up/Plan Appointment with Dr. Ornelas's office in 1 to 2 weeks <b>CARDIAC CATH/EP PROCEDURE DISCHARGE INSTRUCTIONS</b> ACTIVITY * Go Home directly and rest. * Limit activity of the leg (or wrist if it was used) for 7 days including aer obics, swimming, jogging, bicycling, etc. * Restrict stair-climbing for 7 days if possible, if not, climb up with your non-cath leg, then bring together on the same step. * Avoid lifting, pushing, pulling or excessive movement of the affected extremi ty for 7 days. * Customary sexual activity may be resumed after 2 days-use caution not to use a position that strains or causes pain to the affected extremity. * No driving for 24 hours. * NO SMOKING. * Avoid straining for bowel movements for 7 days. * Gentle walking on level ground is allowed. * Returning to work will depend on the type of procedure and the results. Your doctor will discuss this with you. CALL YOUR DOCTOR FOR ANY OF THE FOLLOWING: *If bleeding from the puncture site occurs- Apply gentle pressure to site with clean cloth and call your doctor or EMS. * If a knot or lump forms under the skin, increases in size, or causes pain. * If bruising appears to be worsening or moving further down your leg instead of disappearing. * Temperature above 101 F. CARE OF YOUR GROIN INCISION; * Bruising or purple discoloration of the skin near the puncture site is common. * You may shower only, no bathtub bathing for 5 days. Be careful to avoid slipping as your leg may feel stiff. * If a closure device was used on your femoral artery, please see the attached guide regarding care of the device and your leg. * Leave dressing on FOR 24 hours. CARE OF YOUR WRIST INCISION; * Bruising or purple discoloration of the skin near the puncture site is common. * You may shower. * DO NOT submerge wrist. * Leave dressing on FOR 24 hours. DAYAMI ORNELAS MD Dec 14, 2021 09:26
--- NOTE | 2021-12-14 11:13 | Discharge Summary ---
Discharge Summary Hospital Course Hospital Course Date of Admission: Admission Diagnosis : Family Physician/Provider: [place] Date of Discharge: 12/14/21 Discharge Diagnosis: [ ] Hospital Course: [ ] Labs and Pending Lab Test: Laboratory Tests 12/13/21 13:00: Troponin I 0.837*H 12/13/21 21:05: Glucometer 119H 12/14/21 05:25: White Blood Count 7.2, Red Blood Count 4.28L, Hemoglobin 11.9L, Hematocrit 38L, Mean Corpuscular Volume 89, Mean Corpuscular Hemoglobin 28, Mean Corpuscular Hemoglobin Concent 31L, Red Cell Distribution Width 13.2, Platelet Count 239, Mean Platelet Volume 8.8L, Immature Granulocyte % (Auto) 1, Neutrophils (%) (Auto) 70, Lymphocytes (%) (Auto) 18, Monocytes (%) (Auto) 9, Eosinophils (%) (Auto) 1, Basophils (%) (Auto) 1, Neutrophils # (Auto) 5.0, Lymphocytes # (Auto) 1.3, Monocytes # (Auto) 0.6, Eosinophils # (Auto) 0.1, Basophils # (Auto) 0.1, Immature Granulocyte # (Auto) 0.1, Sodium Level 139, Potassium Level 4.5, Chloride Level 110H, Carbon Dioxide Level 22, Anion Gap 7, Blood Urea Nitrogen 18, Creatinine 1.03, Estimat Glomerular Filtration Rate 82, BUN/Creatinine Ratio 17, Glucose Level 111H, Calcium Level 8.2L, Corrected Calcium 8.8, Total Bilirubin 0.5, Aspartate Amino Transf (AST/SGOT) 25, Alanine Aminotransferase (ALT/SGPT) 17, Alkaline Phosphatase 64, Total Protein 6.0L, Albumin 3.2, Triglycerides Level 199H, Cholesterol Level 160, LDL Cholesterol Direct 105, VLDL Cholesterol 40, HDL Cholesterol 28L Home Meds Active Protonix (Pantoprazole Sodium) 40 Mg Granpkt.dr 40 Mg PO DAILY Aspirin EC (Aspirin) 81 Mg Tablet.dr 81 Mg PO DAILY Losartan Potassium 25 Mg Tablet 25 Mg PO DAILY Metoprolol Tartrate 25 Mg Tablet 25 Mg PO BID Nitroglycerin 0.4 Mg Tab.subl 0.4 Mg SL NEEDED PRN Isosorbide Mononitrate ER (Isosorbide Mononitrate) 30 Mg Tab.er.24h 30 Mg PO DAILY Atorvastatin Calcium 80 Mg Tablet 80 Mg PO HS Clopidogrel (Clopidogrel Bisulfate) 75 Mg Tablet 75 Mg PO DAILY Ibuprofen 200 Mg Capsule 200 Mg PO PRN 30 Days Discharge Physical Examination Vital Signs Vital Signs Date Time Temp Pulse Resp B/P (MAP) Pulse Ox O2 Delivery O2 Flow Rate FiO2 12/14/21 08:00 96 Room Air 12/14/21 07:52 36.8 84 20 105/66 (79) Allergies: Coded Allergies: No Known Drug Allergies (Unverified , 04/30/06) Discharge Summary Date of Admission Date of Discharge Discharge Date: Dec 14, 2021 Admission Diagnosis Chest pain NSTEMI Obesity Hypertension Plan: Cardiac cath Clinical Quality Measures AMI/AHF: ASA po Prior to arrival: No DVT/VTE Risk/Contraindication: VTE Addressed: Yes VTE Present on Admission: No NANCY ARROYO DO Dec 14, 2021 11:13
[2021-12-14 12:00] VITALS: BP 144/88
[2021-12-14] MEDS: NS IV 1000 ML 1,000 ML IV SCH ×2 (12:36→22:30)
[2021-12-14 15:55] VITALS: BP 113/68
[2021-12-15] MEDS: ENOXAPARIN 120 MG/0.8 ML (LOVENOX) SQ SCH (02:37)
[2021-12-15 04:46] LABS: BASOPHILS # (AUTO) 0.1 10^3/uL (0.0-0.1); BASOPHILS % (AUTO) 1 % (0-10); EOSINOPHILS # (AUTO) 0.2 10^3/uL (0.0-0.3); EOSINOPHILS % (AUTO) 2 % (0-10); HEMATOCRIT 38 % (40-54); HEMOGLOBIN 12.1 g/dL (13.3-17.7); LYMPHOCYTES # (AUTO) 1.4 10^3/uL (1.0-4.0); LYMPHOCYTES % (AUTO) 21 % (12-44); MEAN CORPUSCULAR HEMOGLOBIN 28 pg (25-34); MEAN CORPUSCULAR HGB CONC 32 g/dL (32-36); MEAN CORPUSCULAR VOLUME 87 fL (80-99); MEAN PLATELET VOLUME 8.8 fL (9.0-12.2); MONOCYTES # (AUTO) 0.7 10^3/uL (0.0-1.0); MONOCYTES % (AUTO) 11 % (0-12); NEUTROPHILS # (AUTO) 4.4 10^3/uL (1.8-7.8); NEUTROPHILS % (AUTO) 65 % (42-75); PLATELET COUNT 222 10^3/uL (130-400); WHITE BLOOD COUNT 6.8 10^3/uL (4.3-11.0)
[2021-12-15 05:13] LABS: ALBUMIN 3.4 GM/DL (3.2-4.5); POTASSIUM 4.3 MMOL/L (3.6-5.0)
[2021-12-15 05:14] LABS: CALCIUM 8.6 MG/DL (8.5-10.1)
[2021-12-15 05:16] LABS: TOTAL PROTEIN 6.3 GM/DL (6.4-8.2)
[2021-12-15 05:17] LABS: BILIRUBIN,TOTAL 0.5 MG/DL (0.1-1.0)
[2021-12-15 05:19] LABS: CREATININE SERUM 1.02 MG/DL (0.60-1.30)
[2021-12-15] MEDS: inSUlin ASPART (NovoLOG) 1 UNIT/0.01 ML (CHARGE PER UNIT) SC SCH ×4 (05:28→20:33)
[2021-12-15] MEDS: ACETAMINOPHEN 325 MG TABLET PO PRN ×3 (05:30→20:40)
[2021-12-15 08:00] VITALS: BP 118/71
[2021-12-15] MEDS: ASPIRIN E.C. 81 MG (ECOTRIN) TAB PO SCH (08:13)
[2021-12-15] MEDS: LOSARTAN 25 MG (COZAAR) TAB PO SCH (08:13)
[2021-12-15] MEDS: ISOSORBIDE MONONITRATE 30 MG (IMDUR) TAB PO SCH (08:13)
[2021-12-15] MEDS: PANTOPRAZOLE 40 MG (PROTONIX) TAB PO SCH (08:13)
[2021-12-15] MEDS: CLOPIDOGREL 75 MG (PLAVIX) TABLET PO SCH (08:13)
[2021-12-15] MEDS: meTOprolol TARTRATE 25 MG (LOPRESSOR) TABLET PO SCH ×2 (08:13→20:39)
[2021-12-15] MEDS: DOCUSATE SODIUM 100 MG (COLACE) CAP PO SCH ×2 (08:15→20:40)
[2021-12-15] MEDS: SENNOSIDES 8.6 MG (SENOKOT) TAB PO SCH ×2 (08:15→20:40)
[2021-12-15] MEDS: NS IV 1000 ML 1,000 ML IV SCH ×2 (08:30→18:30)
--- NOTE | 2021-12-15 09:27 | Cardiology Progress Note ---
Subjective Date Seen by Provider: Dec 15, 2021 Time Seen by Provider: 09:24 Subjective/Events-last exam Patient has been having recurrent chest pain, describing dull achiness in the retrosternal area radiating to the back. Review of Systems General: No Chills, No Night Sweats, No Fatigue, No Malaise, No Appetite, No Other HEENT: No Head Aches, No Visual Changes, No Eye Pain, No Ear Pain, No Dysphasia, No Sinus Congestion, No Post Nasal Drip, No Sore Throat, No Other Pulmonary: No Dyspnea, No Cough, No Pleuritic Chest Pain, No Other Cardiovascular: Chest Pain; No: Palpitations, Orthopnea, Paroxysmal Noc. Dyspnea, Edema, Lt Headedness, Other Objective-Cardiology Exam Last Set of Vital Signs Vital Signs 12/15/21 08:00 Temp 36.7 Pulse 74 Resp 16 B/P (MAP) 118/71 (87) Pulse Ox 95 O2 Delivery Room Air I&O Intake and Output 12/15/21 00:00 Intake Total 1912 ml Output Total 1925 ml Balance -13 ml Intake Oral 1912 ml Output Urine Total 1925 ml # Bowel Movements 1 General: Alert, Oriented X3, Cooperative HEENT: Atraumatic, PERRLA Neck: Supple, No JVD, No Thyromegaly Lungs: Clear to Auscultation, Normal Air Movement Heart: Regular Rate, Normal S1, Normal S2, Other (Systolic murmur at the left sternal border) Abdomen: Normal Bowel Sounds, Soft, No Tenderness, No Hepatosplenomegaly, No Masses Extremities: No Clubbing, No Cyanosis, No Edema, Normal Pulses, No Tenderness/Swelling Skin: No Rashes, No Breakdown, No Significant Lesion Neuro: Normal Gait, Normal Speech, Strength at 5/5 X4 Ext, Normal Tone, Sensation Intact Psych/Mental Status: Mental Status NL, Mood NL Results Lab Laboratory Tests 12/15/21 04:37 A/P-Cardiology Admission Diagnosis FINAL DIAGNOSIS chest pain Non-ST elevation myocardial infarction Hypertension Hyperlipidemia Assessment/Plan Chest pain, unstable angina, non-ST elevation myocardial infarction, elevation in troponin level Cardiac catheterization was done on December 13, 2021. Diffuse coronary ectasia was noted. Subtotal occlusion in the mid first diagonal artery that is smaller artery not amendable to intervention. Medical therapy is recommended. Patient was started on aspirin and Plavix. Still having active chest pain, I will add Ranexa and evaluate tolerance and response Coronary artery disease, had a cardiac catheterization 2007 showing mild to moderate coronary artery. Cardiac catheterization carried out on December 13, 2021, diffuse coronary ectasia with multiple lesions about 50 to 60%. IFR was done in all 3 arteries, RCA has 50 to 60% proximal stenosis with diffuse ectasia IFR 0.97, left circumflex artery has calcified lesion at the ostium with diffuse ectasia IFR 0.97 and LAD has 50 to 60% stenosis with diffuse ectasia IFR 0.98. Does not require any intervention or stenting. Subtotal occlusion in the mid diagonal artery, small to moderate in size, not amendable to intervention. Medical therapy is recommended Still having chest pain probably due to the subtotal occlusion of the diagonal artery. I am adding Ranexa. If he continues to have chest pain I will consider balloon angioplasty to that lesion Hypertension, better controlled, monitor blood pressure Hyperlipidemia, monitor lipids Strong family history of heart disease. Patient was educated on compliance with medications. Arrange for follow-up in 1 to 2 weeks DAYAMI CHAHAL MD Dec 15, 2021 09:27
[2021-12-15] MEDS ORDERED: RANOLAZINE ER 500 MG TAB (RANEXA) PO SCH (09:30)
[2021-12-15 12:00] VITALS: BP 126/77
[2021-12-15 16:00] VITALS: BP 112/91
[2021-12-15 19:58] VITALS: BP 137/90
[2021-12-15] MEDS: RANOLAZINE ER 500 MG TAB (RANEXA) PO SCH (20:39)
[2021-12-16] VITALS: BP 127/84
[2021-12-16] MEDS ORDERED: ENOXAPARIN 40 MG/0.4 ML (LOVENOX) SYR SQ SCH (03:00)
[2021-12-16] MEDS: NS IV 1000 ML 1,000 ML IV SCH (04:14)
[2021-12-16 05:54] LABS: BASOPHILS # (AUTO) 0.1 10^3/uL (0.0-0.1); BASOPHILS % (AUTO) 1 % (0-10); EOSINOPHILS # (AUTO) 0.2 10^3/uL (0.0-0.3); EOSINOPHILS % (AUTO) 2 % (0-10); HEMATOCRIT 40 % (40-54); HEMOGLOBIN 12.8 g/dL (13.3-17.7); LYMPHOCYTES # (AUTO) 1.4 10^3/uL (1.0-4.0); LYMPHOCYTES % (AUTO) 19 % (12-44); MEAN CORPUSCULAR HEMOGLOBIN 28 pg (25-34); MEAN CORPUSCULAR HGB CONC 32 g/dL (32-36); MEAN CORPUSCULAR VOLUME 87 fL (80-99); MEAN PLATELET VOLUME 8.8 fL (9.0-12.2); MONOCYTES # (AUTO) 0.8 10^3/uL (0.0-1.0); MONOCYTES % (AUTO) 11 % (0-12); NEUTROPHILS # (AUTO) 4.8 10^3/uL (1.8-7.8); NEUTROPHILS % (AUTO) 66 % (42-75); PLATELET COUNT 219 10^3/uL (130-400); WHITE BLOOD COUNT 7.3 10^3/uL (4.3-11.0)
[2021-12-16] MEDS: inSUlin ASPART (NovoLOG) 1 UNIT/0.01 ML (CHARGE PER UNIT) SC SCH ×2 (06:00→10:55)
[2021-12-16 06:11] LABS: ALBUMIN 3.7 GM/DL (3.2-4.5); BILIRUBIN,TOTAL 0.5 MG/DL (0.1-1.0); CALCIUM 9.1 MG/DL (8.5-10.1); CREATININE SERUM 1.01 MG/DL (0.60-1.30); POTASSIUM 4.3 MMOL/L (3.6-5.0)
[2021-12-16 08:00] VITALS: BP 144/85
[2021-12-16] MEDS: SENNOSIDES 8.6 MG (SENOKOT) TAB PO SCH (08:05)
[2021-12-16] MEDS: DOCUSATE SODIUM 100 MG (COLACE) CAP PO SCH (08:05)
[2021-12-16] MEDS: PANTOPRAZOLE 40 MG (PROTONIX) TAB PO SCH (08:06)
[2021-12-16] MEDS: RANOLAZINE ER 500 MG TAB (RANEXA) PO SCH (08:06)
[2021-12-16] MEDS: ISOSORBIDE MONONITRATE 30 MG (IMDUR) TAB PO SCH (08:06)
[2021-12-16] MEDS: LOSARTAN 25 MG (COZAAR) TAB PO SCH (08:06)
[2021-12-16] MEDS: CLOPIDOGREL 75 MG (PLAVIX) TABLET PO SCH (08:06)
[2021-12-16] MEDS: ASPIRIN E.C. 81 MG (ECOTRIN) TAB PO SCH (08:06)
[2021-12-16] MEDS: meTOprolol TARTRATE 25 MG (LOPRESSOR) TABLET PO SCH (08:06)
[2021-12-16] MEDS ORDERED: RANO500T3 PO (11:01)
--- NOTE | 2021-12-16 11:04 | Cardiology Discharge Summary ---
Discharge Summary Hospital Course Problems Reviewed?: Yes Hospital Course Date of Admission: Admission Diagnosis : Family Physician/Provider: [facility] Date of Discharge: 12/16/21 Discharge Diagnosis: [ ] Hospital Course: [Chest pain, unstable angina, non-ST elevation myocardial infarction, elevation in troponin level Cardiac catheterization was done on December 13, 2021. Diffuse coronary ectasia was noted. Subtotal occlusion in the mid first diagonal artery that is smaller artery not amendable to intervention. Medical therapy is recommended. Patient was started on aspirin and Plavix. Better after starting Ranexa Coronary artery disease, had a cardiac catheterization 2007 showing mild to moderate coronary artery. Cardiac catheterization carried out on December 13, 2021, diffuse coronary ectasia with multiple lesions about 50 to 60%. IFR was done in all 3 arteries, RCA has 50 to 60% proximal stenosis with diffuse ectasia IFR 0.97, left circumflex artery has calcified lesion at the ostium with diffuse ectasia IFR 0.97 and LAD has 50 to 60% stenosis with diffuse ectasia IFR 0.98. Does not require any intervention or stenting. Subtotal occlusion in the mid diagonal artery, small to moderate in size, not amendable to intervention. Medical therapy is recommended Still having chest pain probably due to the subtotal occlusion of the diagonal artery. Hypertension, better controlled, monitor blood pressure Hyperlipidemia, monitor lipids Strong family history of heart disease. Patient was educated on compliance with medications. Arrange for follow-up in 1 to 2 weeks ] Labs and Pending Lab Test: Laboratory Tests 12/15/21 16:12: Glucometer 132H 12/15/21 20:31: Glucometer 127H 12/16/21 05:35: White Blood Count 7.3, Red Blood Count 4.64, Hemoglobin 12.8L, Hematocrit 40, Mean Corpuscular Volume 87, Mean Corpuscular Hemoglobin 28, Mean Corpuscular Hemoglobin Concent 32, Red Cell Distribution Width 13.3, Platelet Count 219, Mean Platelet Volume 8.8L, Immature Granulocyte % (Auto) 1, Neutrophils (%) (Auto) 66, Lymphocytes (%) (Auto) 19, Monocytes (%) (Auto) 11, Eosinophils (%) (Auto) 2, Basophils (%) (Auto) 1, Neutrophils # (Auto) 4.8, Lymphocytes # (Auto) 1.4, Monocytes # (Auto) 0.8, Eosinophils # (Auto) 0.2, Basophils # (Auto) 0.1, Immature Granulocyte # (Auto) 0.1, Sodium Level 138, Potassium Level 4.3, Chloride Level 106, Carbon Dioxide Level 21, Anion Gap 11, Blood Urea Nitrogen 12, Creatinine 1.01, Estimat Glomerular Filtration Rate 84, BUN/Creatinine Ratio 12, Glucose Level 120H, Calcium Level 9.1, Corrected Calcium 9.3, Total Bilirubin 0.5, Aspartate Amino Transf (AST/SGOT) 22, Alanine Aminotransferase (ALT/SGPT) 18, Alkaline Phosphatase 71, Total Protein 7.0, Albumin 3.7 12/16/21 10:51: Glucometer 128H Home Meds Active Protonix (Pantoprazole Sodium) 40 Mg Granpkt.dr 40 Mg PO DAILY Aspirin EC (Aspirin) 81 Mg Tablet.dr 81 Mg PO DAILY Losartan Potassium 25 Mg Tablet 25 Mg PO DAILY Metoprolol Tartrate 25 Mg Tablet 25 Mg PO BID Nitroglycerin 0.4 Mg Tab.subl 0.4 Mg SL NEEDED PRN Isosorbide Mononitrate ER (Isosorbide Mononitrate) 30 Mg Tab.er.24h 30 Mg PO DAILY Atorvastatin Calcium 80 Mg Tablet 80 Mg PO HS Clopidogrel (Clopidogrel Bisulfate) 75 Mg Tablet 75 Mg PO DAILY Ibuprofen 200 Mg Capsule 200 Mg PO PRN 30 Days Assessment/Pt DC Instructions Non-ST elevation myocardial infarction Coronary artery disease Hypertension Hyperlipidemia Discharge Physical Examination Allergies: Coded Allergies: No Known Drug Allergies (Unverified , 04/30/06) General Appearance: No Apparent Distress, WD/WN HEENT: PERRL/EOMI, TMs Normal, Normal ENT Inspection, Pharynx Normal Respiratory: Chest Non Tender, Lungs Clear, Normal Breath Sounds, No Accessory Muscle Use, No Respiratory Distress Cardiovascular: Regular Rate, Rhythm, No Edema, No Gallop, No JVD, No Murmur, Normal Peripheral Pulses Gastrointestinal: Normal Bowel Sounds, No Organomegaly, No Pulsatile Mass, Non Tender Extremity: Normal Capillary Refill, Normal Inspection, Normal Range of Motion, Non Tender, No Calf Tenderness Skin: Normal Color, Warm/Dry Neurologic/Psychiatric: Alert Clinical Quality Measures Admission Status Admission Status: Inpatient Order (span 2 midnights) Reason for Inpatient Admission: Non-ST elevation myocardial infarction AMI/AHF: Ejection Fraction: Normal LVSF ASA po Prior to arrival: No DVT/VTE Risk/Contraindication: VTE Addressed: Yes VTE Present on Admission: No DAYAMI CHAHAL MD Dec 16, 2021 11:04
[2021-12-16 11:55] VITALS: BP 148/92
[2021-12-16] MEDS: ACETAMINOPHEN 325 MG TABLET PO PRN (13:27)
== END 2021-12-16 15:00 | disposition home or self-care (01) ==
LOC: EDUNIT# 10:44 → ER 10:46 → CATH 15:08 → CSD 15:08 → CATH 12-16 15:00
PROVIDERS: ATTEND Internal Medicine Cardiovascular Disease
DX: I21.4 Non-ST elevation (NSTEMI) myocardial infarction (principal); I25.10 Atherosclerotic heart disease of native coronary artery without angina pectoris; I10 Essential (primary) hypertension; E78.5 Hyperlipidemia, unspecified; R73.9 Hyperglycemia, unspecified; E66.9 Obesity, unspecified; Z79.899 Other long term (current) drug therapy; Z68.39 Body mass index [BMI] 39.0-39.9, adult
CPT/HCPCS: 36140; 71045; 71275; 80053 ×4; 80061; 82947 ×4; 83690; 83735; 83874; 83880; 84484 ×2; 85025 ×4; 85379; 85610; 85730; 93005 ×4; 93041; 93458; 93571; 93572 ×2; 99285; C1760; C1769; C1887 ×4; C1894 ×2; C8929; 36415; 85027; 90686; 93306

== ENCOUNTER 2022-11-15 10:17 | Emergency (ER) | payer SELFPAY ==
[~2022-11-15] VITALS: Ht 177 cm; Wt 110.0 kg
[~2022-11-15 10:17] MED LIST changes: +ASPI-1238 PO; +ATOR80TA76 PO; +CLOP75TA28 PO; +IBUP-2185 PO; +ISOS30TA82 PO; +LOSA25TA41 PO; +METO-333 PO; +NITR0.4T42 SL; +PANT40SU PO; +RANO500T3 PO
[2022-11-15 10:25] VITALS: BP 149/108
[2022-11-15] MEDS ORDERED: NS IV 1000 ML 1,000 ML IV STA (10:35)
--- NOTE | 2022-11-15 10:38 | ED General ---
General Chief Complaint: Glucose Problems Stated Complaint: DIZZY | SHAKY Nursing Triage Note: pt states he was at work and felt "shaky". Nurses at his work took the pt's blood sugar and it was reported to be in the 500 range. no hx of DM per the patient Source of Information: Patient Exam Limitations: No Limitations History of Present Illness Date Seen by Provider: Nov 15, 2022 Time Seen by Provider: 10:22 Initial Comments 62-year-old male presents to the emergency department today after he felt dizzy, shaky at work. They took his blood sugar and it was in the 500 range. He is not known to be diabetic. He denies any recent fevers or chills. For about 1 week he has noted some excessive thirst with increased urine output. No dysuria or hematuria. No chest pain, shortness of breath, abdominal pain nausea or v omiting. Does have known carotid stenosis around 30 to 50% and states he has a "mildly clogged artery in my left chest." He does take aspirin and Plavix per record review. Also takes several different medicines for high blood pressure. His mother was diabetic. All other systems reviewed and negative except documented per HPI. Voice recognition software was used to help create this chart Allergies and Home Medications Allergies Coded Allergies: No Known Drug Allergies (Unverified , 04/30/06) Patient Home Medication List Home Medication List Reviewed: Yes Aspirin (Aspirin EC) 81 Mg Tablet.dr, 81 MG PO DAILY Prescribed by: DAYAMI CHAHAL on 12/14/21924 Atorvastatin Calcium (Atorvastatin Calcium) 80 Mg Tablet, 80 MG PO HS Prescribed by: DAYAMI CHAHAL on 12/14/21924 Clopidogrel Bisulfate (Clopidogrel) 75 Mg Tablet, 75 MG PO DAILY Prescribed by: DAYAMI CHAHAL on 12/14/21924 Glyburide (Glyburide) 2.5 Mg Tablet, 2.5 MG PO BID Prescribed by: BRAD CAMPOVERDE MD on 11/15/22 1148 Isosorbide Mononitrate (Isosorbide Mononitrate ER) 30 Mg Tab.er.24h, 30 MG PO DAILY Prescribed by: DAYAMI CHAHAL on 12/14/21924 Losartan Potassium (Losartan Potassium) 25 Mg Tablet, 25 MG PO DAILY Prescribed by: DAYAMI CHAHAL on 11/4/22 0925 Metoprolol Tartrate (Metoprolol Tartrate) 25 Mg Tablet, 25 MG PO BID Prescribed by: DAYAMI CHAHAL on 12/14/21924 Nitroglycerin (Nitroglycerin) 0.4 Mg Tab.subl, 0.4 MG SL NEEDED PRN for CHEST PAIN (ANGINA) Prescribed by: DAYAMI CHAHAL on 12/14/21924 Pantoprazole Sodium (Protonix) 40 Mg Granpkt.dr, 40 MG PO DAILY Prescribed by: DAYAMI CHAHAL on 12/14/21924 Ranolazine (Ranexa) 500 Mg Tab.er.12h, 500 MG PO BID Prescribed by: DAYAMI CHAHAL on 12/16/21 1101 Review of Systems Review of Systems Constitutional: see HPI Past Tmcjreb-Ijrkit-Ubianl Hx Patient Social History Tobacco Use?: No Use of E-Cig and/or Vaping dev: No Substance use?: No Alcohol Use?: No Pt feels they are or have been: No Immunizations Up To Date First/Initial COVID19 Vaccinat: YES Second COVID19 Vaccination Liam: YES Third COVID19 Vaccination Date: YES Seasonal Allergies Seasonal Allergies: Yes Past Medical History Surgery/Hospitalization HX: DOESN'T SEE A DR, KIDNEY TUMOR REMOVED AT 24 YO. TONSILLECTOMY AT 7 YO. PATIENT STATES HE HAD A "SIDE RUPTURE" AT 9 YEAR OLD. High Cholesterol, Hypertension Reproductive Disorders: No Hearing Impairment: Hard of Hearing Kidney Did You Recieve Any Treatments: Yes What Type of Treatment Did You: Chemotherapy, Surgical Intervention Family Medical History Heart Disease, CAD Under 55 Years Old, CAD Over 55 Years Old Physical Exam Vital Signs Vital Signs - First Documented 11/15/22 10:25 Temp 37.2 Pulse 105 Resp 20 B/P (MAP) 149/108 (122) Pulse Ox 96 O2 Delivery Room Air Capillary Refill : Less Than 3 Seconds Height, Weight, BMI Height: '" Weight: lbs. oz. kg; 35.00 BMI Method:Stated General Appearance: No Apparent Distress, WD/WN HEENT: Normal ENT Inspection, Pharynx Normal Neck: Normal Inspection, Supple Respiratory: Chest Non Tender, Lungs Clear, Normal Breath Sounds, No Accessory Muscle Use, No Respiratory Distress Cardiovascular: No Murmur, Normal Peripheral Pulses, Tachycardia Gastrointestinal: Normal Bowel Sounds, No Organomegaly, Non Tender, Soft Extremity: Normal Capillary Refill, Normal Inspection, Non Tender, No Calf Tenderness Neurologic/Psychiatric: Alert, Oriented x3, No Motor/Sensory Deficits, Normal Mood/Affect Skin: Normal Color, Warm/Dry Progress/Results/Core Measures Suspected Sepsis SIRS Temperature: Pulse: 105 Respiratory Rate: 20 Laboratory Tests 11/15/22 10:30: White Blood Count 7.5 Blood Pressure 149 /108 Mean: 122 Laboratory Tests 11/15/22 10:30: Creatinine 1.46H, Platelet Count 273, Total Bilirubin 0.8 Results/Orders Lab Results Laboratory Tests Test 11/15/22 10:27 11/15/22 10:30 11/15/22 11:49 11/15/22 11:53 Range/Units Glucometer 560 *H 463 *H 70-110 MG/DL White Blood Count 7.5 4.3-11.0 10^3/uL Red Blood Count 4.60 4.30-5.52 10^6/uL Hemoglobin 13.0 L 13.3-17.7 g/dL Hematocrit 39 L 40-54 % Mean Corpuscular Volume 85 80-99 fL Mean Corpuscular Hemoglobin 28 25-34 pg Mean Corpuscular Hemoglobin Concent 33 32-36 g/dL Red Cell Distribution Width 12.6 10.0-14.5 % Platelet Count 273 130-400 10^3/uL Mean Platelet Volume 9.0 9.0-12.2 fL Immature Granulocyte % (Auto) 1 % Neutrophils (%) (Auto) 65 42-75 % Lymphocytes (%) (Auto) 22 12-44 % Monocytes (%) (Auto) 9 0-12 % Eosinophils (%) (Auto) 2 0-10 % Basophils (%) (Auto) 1 0-10 % Neutrophils # (Auto) 4.9 1.8-7.8 10^3/uL Lymphocytes # (Auto) 1.6 1.0-4.0 10^3/uL Monocytes # (Auto) 0.7 0.0-1.0 10^3/uL Eosinophils # (Auto) 0.1 0.0-0.3 10^3/uL Basophils # (Auto) 0.1 0.0-0.1 10^3/uL Immature Granulocyte # (Auto) 0.1 0.0-0.1 10^3/uL Sodium Level 130 L 135-145 MMOL/L Potassium Level 4.2 3.6-5.0 MMOL/L Chloride Level 96 L 98-107 MMOL/L Carbon Dioxide Level 21 21-32 MMOL/L Anion Gap 13 5-14 MMOL/L Blood Urea Nitrogen 13 7-18 MG/DL Creatinine 1.46 H 0.60-1.30 MG/DL Estimat Glomerular Filtration Rate 54 BUN/Creatinine Ratio 9 Glucose Level 622 *H 70-105 MG/DL Calcium Level 8.9 8.5-10.1 MG/DL Corrected Calcium 8.8 8.5-10.1 MG/DL Total Bilirubin 0.8 0.1-1.0 MG/DL Aspartate Amino Transf (AST/SGOT) 19 5-34 U/L Alanine Aminotransferase (ALT/SGPT) 28 0-55 U/L Alkaline Phosphatase 166 H 40-136 U/L Total Protein 7.6 6.4-8.2 GM/DL Albumin 4.1 3.2-4.5 GM/DL Beta-Hydroxybutyrate (Chem panel) 0.06 0.00-0.27 MMOL/L My Orders Orders - BRAD CAMPOVERDE DO Ekg Tracing (11/15/22 10:31) Beta Hydroxybutyrate (11/15/22 10:34) Ua Culture If Indicated (11/15/22 10:34) Ekg Tracing (11/15/22 10:34) Cbc And Automated Diff (11/15/22 10:34) Comprehensive Metabolic Panel (11/15/22 10:34) Iv/Invasive Line Insertion .IV INSERT (11/15/22 10:35) Ns Iv 1000 Ml (Ns Iv 1000 Ml) (11/15/22 10:35) Glyburide Tablet (Glyburide Tablet) (11/15/22 12:00) Accucheck Stat ONCE (11/15/22 11:51) Vital Signs/I&O 11/15/22 10:25 Temp 37.2 Pulse 105 Resp 20 B/P (MAP) 149/108 (122) Pulse Ox 96 O2 Delivery Room Air Capillary Refill : Less Than 3 Seconds Blood Pressure Mean: 122 ECG Comment sinus tachycardia at 102 bpm, normal invervals, left axis deviation. Prominent Q waves in lead 3. no ST or T waver abnormalities, no ectopy. No STEMI. Departure Communication (Admissions) Patient is hemodynamically stable. No evidence of DKA. His sodium is slightly low, corrects for blood sugar. Blood sugars are trending down after IV fluids, now 468. I spoke with the patient and he does not want to stay in the hospital. Without I spoke with Dr. Rasmussen who is on-call for the [facility] clinic. She recommends glyburide 2.5 mg twice daily until he can be seen in [facility] clinic next week. First dose was given here. We discharged home in stable condition with supportive care and close return precautions Impression Primary Impression: Type 2 diabetes mellitus Qualified Codes: E11.65 - Type 2 diabetes mellitus with hyperglycemia Disposition: HOME, SELF-CARE Condition: Stable Departure-Patient Inst. Referrals: DAYAMI CHAHAL MD (PCP) Primary Care Physician [facility] (Family) Primary Care Physician Patient Instructions: Type 2 diabetes Add. Discharge Instructions: Your blood sugars are high consistent with a new diagnosis of diabetes. I spoke with the hospitalist on-call for the [facility] clinic. She recommends glyburide 2.5 mg twice a day. We have given your first dose here, take another dose before bedtime tonight and continue taking this until you are seen in the [facility] clinic. I recommend you get the earliest available appointment in the [facility] clinic next week. They may want to start you on insulin or change up your medicine some should be able to recheck your blood sugar then. In the meantime return to the emergency department immediately if you are dizzy, clammy lightheaded or if your symptoms change in any way concerning to you All discharge instructions reviewed with patient and/or family. Voiced understanding. Scripts Glyburide (Glyburide) 2.5 Mg Tablet 2.5 MG PO BID for 14 Days, #28 TAB Prov: BRAD CAMPOVERDE DO 11/15/22 BRAD CAMPOVERDE DO Nov 15, 2022 10:38
[2022-11-15 10:39] LABS: BASOPHILS # (AUTO) 0.1 10^3/uL (0.0-0.1); BASOPHILS % (AUTO) 1 % (0-10); EOSINOPHILS # (AUTO) 0.1 10^3/uL (0.0-0.3); EOSINOPHILS % (AUTO) 2 % (0-10); HEMATOCRIT 39 % (40-54); LYMPHOCYTES # (AUTO) 1.6 10^3/uL (1.0-4.0); LYMPHOCYTES % (AUTO) 22 % (12-44); MEAN CORPUSCULAR HEMOGLOBIN 28 pg (25-34); MEAN CORPUSCULAR HGB CONC 33 g/dL (32-36); MEAN CORPUSCULAR VOLUME 85 fL (80-99); MONOCYTES # (AUTO) 0.7 10^3/uL (0.0-1.0); MONOCYTES % (AUTO) 9 % (0-12); NEUTROPHILS # (AUTO) 4.9 10^3/uL (1.8-7.8); NEUTROPHILS % (AUTO) 65 % (42-75); PLATELET COUNT 273 10^3/uL (130-400); WHITE BLOOD COUNT 7.5 10^3/uL (4.3-11.0)
[2022-11-15 10:50] LABS: ALBUMIN 4.1 GM/DL (3.2-4.5); POTASSIUM 4.2 MMOL/L (3.6-5.0)
[2022-11-15 10:51] LABS: CALCIUM 8.9 MG/DL (8.5-10.1)
[2022-11-15 10:53] LABS: TOTAL PROTEIN 7.6 GM/DL (6.4-8.2)
[2022-11-15 10:54] LABS: BILIRUBIN,TOTAL 0.8 MG/DL (0.1-1.0)
[2022-11-15 10:56] LABS: CREATININE SERUM 1.46 MG/DL (0.60-1.30)
[2022-11-15] MEDS ORDERED: GLBR2.5T PO (11:48)
[2022-11-15] MEDS ORDERED: glyBURIDE 2.5 MG TABLET PO ONE (12:00)
[2022-11-15 12:06] LABS: CLARITY,URINE CLEAR; COLOR,URINE YELLOW; PH,URINE 5.5 (5-9)
[2022-11-15 12:07] LABS: BACTERIA,URINE NEGATIVE /HPF; BILIRUBIN,URINE NEGATIVE (NEGATIVE); GLUCOSE, URINE (UA) 3+ (NEGATIVE); KETONES,URINE NEGATIVE (NEGATIVE); LEUKOCYTE ESTERASE ,URINE NEGATIVE (NEGATIVE); NITRITE,URINE NEGATIVE (NEGATIVE); PROTEIN,URINE NEGATIVE (NEGATIVE); RBC,URINE 0-2 /HPF
== END 2022-11-15 12:18 | disposition home or self-care (01) ==
LOC: EDUNIT# 10:17 → ER 10:19
DX: E11.9 Type 2 diabetes mellitus without complications (principal); Z79.82 Long term (current) use of aspirin; Z79.02 Long term (current) use of antithrombotics/antiplatelets
CPT/HCPCS: 36415; 80053; 81000; 82010; 82947; 85025; 93005